=== PATIENT | female | born 1960 | race African-American/Black ===

== ENCOUNTER 2020-07-24 21:02 | Inpatient (IN) | payer OTHER ==
[~2020-07-24] VITALS: Ht 175.3 cm; Wt 65.9 kg
--- NOTE | 2020-07-24 21:15 | NUR ---
PT AAOX4. [employer] PLACED ON A DUE TO PT BEING SI TO WITH PLAN TO OVERDOSE. PT PLACED IN BED 15 ON MONITOR AND PULSE OX. BELONINGS PLACED IN LOCKER. PT IN GOWN, SITTER AT BEDSIDE. AWAITING FOR MD FOR EVAL AND ORDERS. WILL CONTINUE TO MONITOR.
--- NOTE | 2020-07-24 21:17 | NUR ---
URINE COLLECTED, SENT TO LAB.
--- NOTE | 2020-07-24 21:26 | NUR ---
RESOURCE CONSERVATION SPECIALIST AT BEDSIDE FOR LAB WORK.
[2020-07-24 21:39] LABS: BASOPHILS % (AUTO) 0.5 % (0.0-2.0); EOSINOPHILS % (AUTO) 1.6 % (0.0-6.0); HEMATOCRIT 37 % (33-45); HEMOGLOBIN 11.5 g/dL (11.5-14.8); LYMPHOCYTES # (AUTO) 1.7 /CMM (0.8-4.8); LYMPHOCYTES % (AUTO) 27.3 % (20.0-44.0); MEAN CORPUSCULAR HGB CONC 31 g/dl (31.0-36.0); MEAN CORPUSCULAR VOLUME 102 fL (82-100); MONOCYTES # (AUTO) 0.4 /CMM (0.1-1.30); NEUTROPHILS # (AUTO) 4.1 /CMM (1.8-8.9); NEUTROPHILS % (AUTO) 64.6 % (43.0-81.0); PLATELET COUNT (AUTO) 112 /CMM (150-450); WHITE BLOOD COUNT (AUTO) 6.4 K/uL (4.3-11.0)
--- NOTE | 2020-07-24 21:47 | NUR ---
COVID SWAB COLLECTED AND SENT TO THE LAB
[2020-07-24 21:55] LABS: BILIRUBIN,URINE SMALL (NEGATIVE); BLOOD, URINE MODERATE Ery/uL (NEGATIVE); COLOR,URINE YELLOW (YELLOW); LEUKOCYTE ESTERASE ,URINE NEGATIVE (NEGATIVE); NITRITE, URINE NEGATIVE (NEGATIVE); PROTEIN,URINE >=300 mg/dl (NEGATIVE); UGLUCOSE NEGATIVE (NEGATIVE)
--- NOTE | 2020-07-24 21:59 | NUR ---
provided admitting with admission packet.
[2020-07-24 22:00] LABS: CALCIUM, SERUM 8.9 mg/dL (8.5-10.1); CARBON DIOXIDE 26 mmol/L (21-32); CHLORIDE 108 mmol/L (98-107); CREATININE 1.1 mg/dL (0.6-1.3); GLUCOSE 103 mg/dL (74-106); POTASSIUM 3.6 mmol/L (3.5-5.1); SODIUM SERUM 146 mmol/L (136-145); UREA NITROGEN, BLOOD 14 mg/dL (7-18)
[2020-07-24 22:05] LABS: ACETAMINOPHEN 5 ug/ml (10-30); ALANINE AMINOTRANSFERASE 26 U/L (12-78); ALBUMIN 3.1 g/dL (3.4-5.0); ALCOHOL, BLOOD < 3 mg/dL (0-0); ALKALINE PHOSPHATASE 104 U/L (46-116); ASPARTATE AMINOTRANSFERASE 33 U/L (15-37); BILIRUBIN,DIRECT 0.3 mg/dL (0.0-0.2); BILIRUBIN,TOTAL 0.7 mg/dL (0.2-1.0); TOTAL PROTEIN, SERUM 7.7 g/dL (6.4-8.2)
--- NOTE | 2020-07-24 22:34 | NUR ---
spoke to LONI Brice from [facility], verbal okay to admit.
[2020-07-24 22:55] LABS: BACTERIA,URINE None seen /HPF (None Seen); CALCIUM OXALATE CRYSTALS,UR Many /HPF (None Seen); SQUAMOUS EPITHELIAL CELL,UR Moderate /HPF (None Seen); WBC,URINE 0-2 /HPF (0-3)
--- NOTE | 2020-07-24 22:55 | NUR ---
called [facility] for panel admission. edwin paged. waiting for call back
[2020-07-24 22:56] LABS: MUCUS,URINE Few /LPF (None Seen)
[2020-07-24] MEDS ORDERED: ASPIRIN 81 MG TAB.CHEW PO ONE (23:00)
[2020-07-24] MEDS ORDERED: FUROSEMIDE 40 MG/4 ML VIAL IV ONE (23:00)
--- NOTE | 2020-07-24 23:15 | NUR ---
called RN sup for tele bed; aware pt is on 5150 hold.
--- NOTE | 2020-07-24 23:20 | NUR ---
BED 324-2
[2020-07-24] MEDS ORDERED: FUROSEMIDE 40 MG/4 ML VIAL ONE (23:23)
[2020-07-24] MEDS ORDERED: ASPIRIN 81 MG TAB.CHEW ONE (23:23)
--- NOTE | 2020-07-24 23:40 | NUR ---
REPORT GIVEN TO ULISES ABRAHAM FOR WILLIAM
[2020-07-25] VITALS: BP 135/88
[2020-07-25] MEDS ORDERED: MAG HYDROX/AL HYDROX/SIMETH 30 ML UDC PO PRN
[2020-07-25] MEDS ORDERED: Z GUARD REMEDY 2 OZ OINT TP PRN
[2020-07-25] MEDS ORDERED: MAGNESIUM HYDROXIDE 30 ML UDC PO PRN
[2020-07-25] MEDS ORDERED: ONDANSETRON HCL/PF 4 MG/2 ML VIAL IVP PRN
[2020-07-25] MEDS ORDERED: ACETAMINOPHEN 325 MG TABLET PO PRN
[2020-07-25] MEDS ORDERED: LORAZEPAM 1 MG TABLET PO PRN
--- NOTE | 2020-07-25 | NUR ---
RN NOTES ADMITTED PATIENT FROM ED, BROUGHT IN BY [employer] DUE TO REPORT OF SUICIDAL IDEATION BY OVERDOSE, PATIENT FROM BOARD AND CARE. ALERT AND ORIENTED X2, ANXIOUS, SCREAMING, UNCOOPERATIVE, IMPULSIVE. LUNG SOUNDS ARE CLEAR ON AUSCULTATION, UNSTEADY GAIT, COMPLAINING OF LEFT LEG PAIN, UNABLE TO WALK, ASSISTED WITH TRANSFER, USES BEDSIDE COMMODE, COCAINE AND OPIATES (+), LABILE, SCREAMS AND CALM THE NEXT. WAS GIVEN ASA AND LASIX IN ED. TROPONIN ELEVATED, ON SERIAL TROPONINS, WITH 1:1 SITTER FOR SAFETY.
[2020-07-25] MEDS: METOPROLOL TARTRATE 25 MG TABLET PO SCH ×3 (00:47→20:51)
[2020-07-25] MEDS: NITROGLYCERIN PACKET 1 GM PACKET TOP SCH ×5 (00:48→23:21)
[2020-07-25] MEDS: ENOXAPARIN SODIUM 40 MG/0.4 ML DISP.SYRIN SQ SCH ×2 (00:49→20:52)
[2020-07-25] MEDS: HYDROCODONE/APAP 5/325MG TABLET PO PRN ×2 (03:32→20:49)
--- NOTE | 2020-07-25 03:41 | NUR ---
RN NOTES ASPIRIN 325 MG PO NOT GIVEN AT MIDNIGHT, PATIENT RECEIVED ASA IN ED AT 2301, PATIENT GIVEN LOVENOX SCHEDULED
[2020-07-25 04:00] VITALS: BP 113/81
--- NOTE | 2020-07-25 06:41 | NUR ---
RN NOTES PATIENT WITH EPISODES OF AGITATION AND SCREAMING, VERY ANXIOUS, BP STABLE, WAS GIVEN LASIX, VOIDING FREQUENTLY VIA BSC, ONE ON ONE SITTER FOR SAFETY, SUICIDAL IDEATION BY OVERDOSE, GIVEN METOPROLOL AND NITROBID, LOVENOX, ASPIRIN,. SERIAL TROPONIN, AM LABS, MD RECOMMENDS CARDIAC CONSULT, PSYCH EVAL, MONITOR FOR WITHDRAWAL
[2020-07-25 07:27] LABS: BASOPHILS % (AUTO) 0.7 % (0.0-2.0); EOSINOPHILS % (AUTO) 2.5 % (0.0-6.0); HEMATOCRIT 34 % (33-45); HEMOGLOBIN 11.1 g/dL (11.5-14.8); LYMPHOCYTES # (AUTO) 1.9 /CMM (0.8-4.8); LYMPHOCYTES % (AUTO) 37.5 % (20.0-44.0); MEAN CORPUSCULAR HGB CONC 32 g/dl (31.0-36.0); MEAN CORPUSCULAR VOLUME 100 fL (82-100); MONOCYTES # (AUTO) 0.4 /CMM (0.1-1.30); MONOCYTES % (AUTO) 8.1 % (2.0-12.0); NEUTROPHILS # (AUTO) 2.6 /CMM (1.8-8.9); NEUTROPHILS % (AUTO) 51.2 % (43.0-81.0); PLATELET COUNT (AUTO) 98 /CMM (150-450); RED BLOOD CELL COUNT(AUTO) 3.45 MIL/uL (4.0-5.2); WHITE BLOOD COUNT (AUTO) 5.1 K/uL (4.3-11.0)
--- NOTE | 2020-07-25 07:37 | NUR ---
COUNTER TENDER OPENING NOTES RECEIVED PATIENT IN BED, AWAKE, A/O X2. PATIENT ON ROOM AIR; BREATHING IS EVEN AND UNLABORED; NO SOB NOTED. PER PULL OVER MACHINE OPERATOR NURSE PATIENT WITH SUICIDAL IDEATIONS, ANXIOUS AT TIMES AND ANGRY. SITTER PRESENT AT THE BEDSIDE. IV ACCESS ON CAMILLE G # 20 PRESENT AND INTACT; FLUSHING WELL. SAFETY PRECAUTIONS IN PLACE; BED IN LOW POSITION AND LOCKED, RAILS UP X2, CALL LIGHT WITHIN REACH. WILL CONTINUE TO MONITOR PATIENT.
[2020-07-25 07:39] LABS: CALCIUM, SERUM 8.5 mg/dL (8.5-10.1); MAGNESIUM 1.9 mg/dL (1.8-2.4); PHOSPHORUS 3.6 mg/dL (2.5-4.9); POTASSIUM 3.3 mmol/L (3.5-5.1)
[2020-07-25] MEDS ORDERED: ESTR-6 PO (07:44)
[2020-07-25] MEDS ORDERED: LISI-603 PO (07:44)
[2020-07-25] MEDS ORDERED: CARV12.52 PO (07:44)
[2020-07-25] MEDS ORDERED: LEVO100T9 PO (07:44)
[2020-07-25] MEDS ORDERED: GABA800T11 PO (07:44)
[2020-07-25] MEDS ORDERED: DOCU250C14 PO (07:44)
[2020-07-25] MEDS ORDERED: EMTR1TAB17 PO (07:54)
[2020-07-25] MEDS ORDERED: DOLU10TA PO (07:54)
[2020-07-25] MEDS ORDERED: FUROSEMIDE 40 MG/4 ML VIAL IV SCH (09:00)
[2020-07-25] MEDS ORDERED: Emtricitabine/Tenofov Alafenam (Descovy 200-25 mg Tablet PO SCH (09:00)
[2020-07-25] MEDS: POTASSIUM CHLORIDE 20 MEQ TAB.PRT.SR PO SCH ×3 (09:20→11:39)
[2020-07-25] MEDS: LEVOTHYROXINE SODIUM 100 MCG TABLET PO SCH (09:20)
[2020-07-25] MEDS: ASPIRIN 325 MG TABLET PO SCH ×2 (09:20)
[2020-07-25] MEDS: FUROSEMIDE 40 MG/4 ML VIAL IV SCH ×3 (09:21→17:00)
--- NOTE | 2020-07-25 12:20 | NUR ---
VAULT MANAGER NOTES ECHO DONE TODAY WITH RESULTS OF 30-35% EF, CARDIOMEGALY AND TRACE OD PERICARDIAL EFFUSION. MD AWARE AND SAW THE PATIENT.
--- NOTE | 2020-07-25 17:26 | NUR ---
MICA SIZER NOTES 1700 LASIX NOT GIVE DUE TO DECREASED BP OF 99/78 HR 83. CHARGE NURSE AWARE
--- NOTE | 2020-07-25 17:50 | NUR ---
PERSONNEL WORKER NOTES CONSULT DONE WITH DR HALEY REGARDING THE PATIENT ON 5150 HOLD. CASE DISCUSSED AND DR WILL TRY TO SEE THE PATIENT TONIGHT OR TOMORROW MORNING.
--- NOTE | 2020-07-25 18:07 | NUR ---
NURSE COLLEGE NOTES PSYCH EVAL DONE BY DR HALEY OVER THE PHONE (FACE-TIME) WITH THE PATIENT.
--- NOTE | 2020-07-25 18:54 | NUR ---
SPRINKLER FITTER CLOSING NOTES PATIENT REMAINS IN BED, AWAKE, A/O X2. PATIENT ON ROOM AIR DURING THE DAY; BREATHING IS EVEN AND UNLABORED. IV ACCESS ON CAMILLE G # 20 PRESENT AND INTACT; FLUSHING WELL. SITTER PRESENT AT THE BEDSIDE. PSYCH CONSULT WITH MD DONE OVER FACE-TIME. ALL NEEDS ATTENDED THROUGHOUT THE DAY. SAFETY PRECAUTIONS IN PLACE; BED IN LOW POSITION AND LOCKED, RAILS UP X2, CALL LIGHT WITHIN REACH. WILL ENDORSE TO LEAD FRONT END DEVELOPER NURSE.
[2020-07-25 20:00] VITALS: BP 107/78
--- NOTE | 2020-07-25 20:00 | NUR ---
RN NOTES PATIENT IN BED, ALERT AND ORIENTED X4, CALM, COOPERATIVE, ROOM AIR, BACK PAIN, LEG PAIN, DEPRESSED, SITTER AT THE BEDSIDE, WITH SUICIDAL IDEATION BY OVERDOSE, ASSIST TO BEDSIDE COMMODE, ON LASIX, WILL CONTINUE TO MONITOR.
[2020-07-25 20:51] VITALS: BP 107/78
[2020-07-25 23:20] VITALS: BP 111/68
[2020-07-26] VITALS: BP 111/68
[2020-07-26 04:00] VITALS: BP 118/89
[2020-07-26] MEDS: HYDROCODONE/APAP 5/325MG TABLET PO PRN ×2 (04:24→08:40)
[2020-07-26] MEDS: NITROGLYCERIN PACKET 1 GM PACKET TOP SCH (05:53)
--- NOTE | 2020-07-26 06:15 | NUR ---
RN NOTES ALERT AND ORIENTED X3, STABLE ON ROOM AIR, NO COMPLAIN OF CHEST PAIN, COMPLAINING OF BACK PAIN AND LEFT LEG PAIN, GIVEN NORCO WITH MODERATE RELIEF, UNSTEADY GAIT, ASSISTED TO BSC, URINARY FREQUENCY, ON LASIX, PSYCH EVAL DONE, ON LEXAPRO, SOCIAL SERVICE CONSULT DUE TO HOMELESSNESS, CONTINUE PSYCH HOLD 5150 STARTED ON 07/24/20 AT 20:00, SITTER AT THE BEDSIDE FOR SAFETY.
[2020-07-26 06:42] LABS: BASOPHILS % (AUTO) 0.7 % (0.0-2.0); EOSINOPHILS % (AUTO) 1.9 % (0.0-6.0); HEMATOCRIT 37 % (33-45); HEMOGLOBIN 11.6 g/dL (11.5-14.8); LYMPHOCYTES # (AUTO) 1.6 /CMM (0.8-4.8); MEAN CORPUSCULAR HGB CONC 32 g/dl (31.0-36.0); MEAN CORPUSCULAR VOLUME 102 fL (82-100); MONOCYTES # (AUTO) 0.6 /CMM (0.1-1.30); MONOCYTES % (AUTO) 10.9 % (2.0-12.0); NEUTROPHILS # (AUTO) 2.9 /CMM (1.8-8.9); NEUTROPHILS % (AUTO) 55.5 % (43.0-81.0); PLATELET COUNT (AUTO) 86 /CMM (150-450); WHITE BLOOD COUNT (AUTO) 5.2 K/uL (4.3-11.0)
[2020-07-26 06:54] LABS: ALBUMIN 2.7 g/dL (3.4-5.0); BILIRUBIN,TOTAL 0.6 mg/dL (0.2-1.0); CALCIUM, SERUM 8.7 mg/dL (8.5-10.1); CREATININE 1.3 mg/dL (0.6-1.3); MAGNESIUM 1.9 mg/dL (1.8-2.4); PHOSPHORUS 3.4 mg/dL (2.5-4.9); POTASSIUM 3.9 mmol/L (3.5-5.1)
--- NOTE | 2020-07-26 07:30 | NUR ---
RN OPENING NOTES PATIENT IN BED, AWAKE, A/O X3. PATIENT ON ROOM AIR BREATHING IS EVEN AND UNLABORED. IV ACCESS ON CAMILLE G # 20 PRESENT AND INTACT; FLUSHING WELL. SITTER PRESENT AT THE BEDSIDE. SAFETY PRECAUTIONS IN PLACE; BED IN LOW POSITION AND LOCKED, RAILS UP X2, CALL LIGHT WITHIN REACH. WILL CONT TO MONITOR
[2020-07-26] MEDS: ASPIRIN 325 MG TABLET PO SCH (08:39)
[2020-07-26] MEDS: LEVOTHYROXINE SODIUM 100 MCG TABLET PO SCH (08:39)
[2020-07-26] MEDS: METOPROLOL TARTRATE 25 MG TABLET PO SCH (08:40)
[2020-07-26] MEDS ORDERED: ESCITALOPRAM OXALATE (10 MG) 10 MG TABLET PO SCH (09:00)
[2020-07-26] MEDS ORDERED: LOSARTAN POTASSIUM 50 MG TABLET PO SCH (10:30)
[2020-07-26] MEDS ORDERED: POTASSIUM CHLORIDE 20 MEQ TAB.PRT.SR PO SCH (10:30)
[2020-07-26] MEDS ORDERED: FUROSEMIDE 40 MG TABLET PO SCH (10:30)
[2020-07-26 11:00] VITALS: BP 128/88
[2020-07-26] MEDS ORDERED: POTA20TA83 PO (11:58)
[2020-07-26] MEDS ORDERED: FURO40TA5 PO (11:58)
[2020-07-26] MEDS ORDERED: ESCI10TA PO (11:58)
[2020-07-26] MEDS ORDERED: ASPI-992 PO (11:58)
[2020-07-26] MEDS ORDERED: LOSA50TA3 PO (11:58)
--- NOTE | 2020-07-26 15:58 | NUR ---
pt facetimed with dr. hylton (psychiatrist). psychiatrist evaluated the pt. per dr. hylton. d/c the 72hr hold, pt is voluntarily wanting to transfer to [facility]. and okay to transfer to [facility]. case management made aware.
--- NOTE | 2020-07-26 16:47 | NUR ---
attempted to do a body check. but pt refused. explained risks and benefits but pt still refusing. stated, 'i wanna sleep, please dont bother me!"
--- NOTE | 2020-07-26 17:04 | NUR ---
pt still refusing body check. pt states, 'you dont need to check my skin. my skin is clear. its fine. dont worry about it. just leave me alone.'
--- NOTE | 2020-07-26 17:13 | NUR ---
report given to lynn mckenzie for cristiano Addendum: 07/26/20 at 1849 by STACY HENRY RN [facility] phone number: pt will be going to room 208 and will be under the care of Dr. Torrez
--- NOTE | 2020-07-26 17:30 | NUR ---
inventory was done of all belongings in the presence of the pt. all belongings were accounted for and noted on the inventory list. pt also stated, 'i came in this hospital with $61', pt counted her dill money infront of me and there was indeed $61 dollars inside her wallet, pt stated, 'that is correct, this is all of my money.' pt also acknowledged that she has all of the belongings that she came in with when she came to the hospital. inventory list was signed by the pt and witnessed by primary rn.
--- NOTE | 2020-07-26 17:50 | NUR ---
pt was picked up by 2 shirt cre[facility] via ambulance. pt will be going to [facility] facility. pt is voluntarily willing and agreeable to go. pt was medically cleared by dr. russo and with orders from dr. russo (hospitalist) and dr. hylton (psychiatrist) to transfer to [facility]. report was given to shirt creaser that picked up the pt. all belongings were endorsed and was taken with the pt upon discharge. pt was discharged and left the unit in stable condition.
== END 2020-07-26 18:33 | DRG 194 ==
LOC: ER 21:09 → TELE 23:32 → MED 07-26 11:00
PROVIDERS: ADMIT Internal Medicine; ATTEND Nurse Practitioner Acute Care
DX: I11.0 Hypertensive heart disease with heart failure (principal); I50.41 Acute combined systolic (congestive) and diastolic (congestive) heart failure; J96.01 Acute respiratory failure with hypoxia; I21.A1 Myocardial infarction type 2; E43 Unspecified severe protein-calorie malnutrition; E03.9 Hypothyroidism, unspecified; E78.5 Hyperlipidemia, unspecified; E87.6 Hypokalemia; F17.200 Nicotine dependence, unspecified, uncomplicated; J44.9 Chronic obstructive pulmonary disease, unspecified; F19.10 Other psychoactive substance abuse, uncomplicated; F29 Unspecified psychosis not due to a substance or known physiological condition; E88.09 Other disorders of plasma-protein metabolism, not elsewhere classified; Z68.21 Body mass index [BMI] 21.0-21.9, adult; D64.9 Anemia, unspecified; F33.2 Major depressive disorder, recurrent severe without psychotic features; I34.0 Nonrheumatic mitral (valve) insufficiency
CPT/HCPCS: 36415; 71045-TC; 80048-TC; 80053-TC; 80061-TC; 80076-TC; 81001; 82728-TC; 83540-TC; 83735-TC; 83880; 84100-TC; 84439-TC; 84443-TC; 84484-TC; 85025-TC; 87081-TC; 93307-TC; C9803; G0378; G0480; J1650; J1940